=== PATIENT | male | born 1990 | race Caucasian/White ===

== ENCOUNTER 2016-09-04 09:05 | Emergency (ER) | payer OTHER ==
[~2016-09-04] VITALS: Ht 182.9 cm; Wt 78.7 kg
[~2016-09-04 09:05] MED LIST: DICL-201 PO; TRAM-10 PO
[2016-09-04 09:10] VITALS: TEMP 36.3; Ht 182.9 cm; Wt 78.7 kg
[2016-09-04] MEDS ORDERED: MoRPHine SULFATE 10 MG/ML CARP/VIAL IV STA (09:51)
[2016-09-04] MEDS ORDERED: ONDANSETRON INJ 2 MG/ML 2 ML VIAL IV STA (09:51)
[2016-09-04] MEDS ORDERED: SODIUM CHLORIDE 0.9% 1000ML 1,000 ML IV STA (09:51)
[2016-09-04 09:53] LABS: URINE APPEARANCE CLOUDY (CLEAR); URINE BILIRUBIN NEG (NEG); URINE COLOR YELLOW; URINE EPITHELIAL CELL AUTO 0-5 /lpf (0-5); URINE NITRITE NEG (NEG); URINE SPECIFIC GRAVITY 1.022 (1.000-1.030); UROBILINOGEN POS (NEG); ZZUR CULT IF INDIC CLEAN CATCH NO
[2016-09-04 09:59] LABS: MANUAL MICROSCOPIC REQUIRED? NO; REVIEW REQ? NO
[2016-09-04] MEDS ORDERED: OPTIRAY 320 IV PRN (10:00)
--- NOTE | 2016-09-04 10:11 | DIAGNOSTIC IMAGING REPORT ---
CHEST ONE VIEW PORTABLE CLINICAL HISTORY: fall trauma COMPARISON STUDY: 07/21/2016 FINDINGS: The bones soft tissues and hemidiaphragms are normal. The cardiomediastinal silhouette is normal. The lungs are clear. The pulmonary vasculature is normal. IMPRESSION: Negative chest. Electronically signed by: Alessandro Parsons M.D. 09/04/2016 10:09 AM
[2016-09-04 10:22] LABS: BASO % 0.3 %; BASO ABS # 0.02 K/uL (0-0.2); COMPLETE YES; EOS % 3.6 %; HEMATOCRIT 47.5 % (42-52); IG% 0.3 %; LYMPH % 24.8 %; MEAN CELL VOLUME 88.6 fL (80-100); MEAN CORPUSCULAR HEMOGLOBIN 31.7 pg (25-34); MEAN CORPUSCULAR HGB CONC 35.8 g/dl (32-36); MEAN PLATELET VOLUME 10.3 fL (7.4-10.4); MONO % 9.6 %; NEUT % 61.4 %; PLATELET COUNT 150 K/uL (130-400); RED BLOOD COUNT 5.36 M/uL (4.7-6.1); WHITE BLOOD COUNT 6.04 K/uL (4.8-10.8)
[2016-09-04 10:42] LABS: BUN/CREATININE RATIO 15.8 (10-20); CALCIUM 8.7 mg/dl (8.5-10.1); CREATININE 0.98 mg/dl (0.60-1.40); POTASSIUM 4.1 mmol/L (3.5-5.1)
--- NOTE | 2016-09-04 11:37 | DIAGNOSTIC IMAGING REPORT ---
ABDOMEN AND PELVIS CT WITH IV CONTRAST CT DOSE: 293.86 mGy.cm HISTORY: fall right flank pain urinating blood TECHNIQUE: Multiaxial CT images of the abdomen and pelvis were performed following the use of intravenous contrast. COMPARISON STUDY: None. FINDINGS: The lung bases are clear. The liver, spleen, gallbladder, pancreas, kidneys, and adrenal glands are within normal limits. No bowel wall thickening or obstruction. The pelvic organs are unremarkable. No suspicious lytic or blastic osseous lesions. The spleen remains top normal in size measuring 12.5 cm in length. No fractures within the visualized osseous structures. IMPRESSION: No acute abnormality within the abdomen or pelvis. Specifically, the kidneys appear unremarkable. Electronically signed by: Edgardo Patel M.D. 09/04/2016 11:35 AM
[2016-09-04 12:06] VITALS: BP 108/79; PULSE 66; O2SAT 99
--- NOTE | 2016-09-04 17:08 | EMERGENCY ROOM VISIT NOTE ---
History Report prepared by John: Charlotte Montero Under the Supervision of: Dr. Aneesh Reyna D.O. First contact with patient: 09:21 Chief Complaint: URINARY SYMPTOMS Stated Complaint: LOWER BACK PAIN, BLOOD IN URINE Nursing Triage Summary: Pt states he fell last night striking his right back, today awoke with hematuria History of Present Illness The patient is a 26 year old male who presents to the Emergency Room with complaints of passing one movement of hematuria this morning after suffering a fall last evening. Currently, he is experiencing discomfort to his mid-right back, wrapping around his right side, and he rates his discomfort as a 3/10, which increases with movement. Last evening, patient states that he was walking outside when he slipped and fell backwards, falling under his porch, hitting his right back on his arts therapist. The patient did not lose consciousness or suffer injuries to his head, neck, chest, abdomen, pelvis or extremities during the accident. After falling, the patient was able to get up without significant pain and he went to sleep normally. However, upon waking up this morning the pain to his mid-right back had become worse. He then went to the bathroom but noticed what appeared to be blood in his urine, so he came to the ED for further evaluation. Pt denies headache, change in vision, fevers, chest pain, shortness of breath, nausea, vomiting, diarrhea, pain with urination, and melena. He denies the use of blood thinning medication. Source of History: patient Onset: this morning Position: other (urine) Symptom Intensity: 3/10 Quality: other (hematuria) Timing: other (1 movement) Modifying Factors (Worsening): movement Associated Symptoms: + back pain (right flank), No SOB, No abdominal pain, No chest pain, No diarrhea, No fevers, No melena, No nausea, No vomiting Review of Systems See HPI for pertinent positives & negatives. A total of 10 systems reviewed and were otherwise negative. Past Medical & Surgical Medical Problems: (1) ALCOHOL ABUSE-UNSPEC (2) FAM HX-DIABETES MELLITUS (3) FAM HX-OTH KIDNEY DISEASES (4) FAMILY HISTORY OF OTHER CARDIOVASCULAR DISEASES (5) FAMILY HX-CONDITION NEC (6) Migraine (7) OPIOID ABUSE-UNSPEC (8) Status post ORIF of fracture of ankle (9) TOBACCO USE DISORDER Family History Heart disease Kidney disease Kidney stones Social History Smoking Status: Never Smoker Alcohol Use: none Marital Status: in relationship Housing Status: lives with family, other Occupation Status: employed Current/Historical Medications No Active Prescriptions or Reported Meds Allergies Coded Allergies: Amoxicillin (Verified Allergy, Unknown, ., 09/04/16) Cephalosporins (Verified Allergy, Unknown, UNKNOWN, 09/04/16) Penicillins (Unverified Allergy, Unknown, 09/04/16) Physical Exam Vital Signs Date Time Temp Pulse Resp B/P Pulse Ox O2 Delivery O2 Flow Rate FiO2 09/04/16 12:06 66 14 108/79 99 09/04/16 10:55 62 15 118/73 98 Room Air 09/04/16 09:10 36.3 72 16 107/80 98 Room Air Physical Exam GENERAL: Alert, well appearing, well nourished, no distress, non-toxic HEAD: normal cephalic, atraumatic EYE EXAM: normal conjunctiva, PERRL and EOM's grossly intact OROPHARYNX: no exudate, no erythema, lips, buccal mucosa, and tongue normal and mucous membranes are moist EARS: TMs clear b/l NECK: supple, no nuchal rigidity, no adenopathy, non-tender CHEST: stable to compression anteriorly and posteriorly LUNGS: clear to auscultation. Normal chest wall mechanics HEART: no murmurs, S1 normal and S2 normal ABDOMEN: abdomen soft, non-tender, normo-active bowel sounds, no masses, no rebound or guarding. PELVIS: stable to compression anteriorly and posteriorly BACK: Back is symmetrical on inspection and there is no deformity, acute reproducible tenderness in the right flank without bruising. No midline tenderness. UPPER EXTREMITIES: full active and passive range of motion of all joints without tenderness to palpation LOWER EXTREMITIES: full active and passive range of motion of all joints without tenderness to palpation NEURO EXAM: Normal sensorium, cranial nerves II-XII grossly intact, normal speech, no gross weakness of arms, no gross weakness of legs. GCS: 15. Medical Decision & Procedures ER Provider Diagnostic Interpretation: CT:Per my review, radiologist interpretation. Xray results per the radiologist and my interpretation. Other results have been interpreted by the radiologist and reviewed by me. CHEST ONE VIEW PORTABLE CLINICAL HISTORY: fall trauma COMPARISON STUDY: 07/21/2016 FINDINGS: The bones soft tissues and hemidiaphragms are normal. The cardiomediastinal silhouette is normal. The lungs are clear. The pulmonary vasculature is normal. IMPRESSION: Negative chest. Electronically signed by: Alessandro Parsons M.D. 09/04/2016 10:09 AM ABDOMEN AND PELVIS CT WITH IV CONTRAST CT DOSE: 293.86 mGy.cm HISTORY: fall right flank pain urinating blood TECHNIQUE: Multiaxial CT images of the abdomen and pelvis were performed following the use of intravenous contrast. COMPARISON STUDY: None. FINDINGS: The lung bases are clear. The liver, spleen, gallbladder, pancreas, kidneys, and adrenal glands are within normal limits. No bowel wall thickening or obstruction. The pelvic organs are unremarkable. No suspicious lytic or blastic osseous lesions. The spleen remains top normal in size measuring 12.5 cm in length. No fractures within the visualized osseous structures. IMPRESSION: No acute abnormality within the abdomen or pelvis. Specifically, the kidneys appear unremarkable. Electronically signed by: Edgardo Patel M.D. 09/04/2016 11:35 AM Laboratory Results 09/04/16 10:10 Red Blood Count 5.36, Mean Corpuscular Volume 88.6, Mean Corpuscular Hemoglobin 31.7, Mean Corpuscular Hemoglobin Concent 35.8, Mean Platelet Volume 10.3, Neutrophils (%) (Auto) 61.4, Lymphocytes (%) (Auto) 24.8, Monocytes (%) (Auto) 9.6, Eosinophils (%) (Auto) 3.6, Basophils (%) (Auto) 0.3, Neutrophils # (Auto) 3.70, Lymphocytes # (Auto) 1.50, Monocytes # (Auto) 0.58, Eosinophils # (Auto) 0.22, Basophils # (Auto) 0.02 09/04/16 10:10 Test 09/04/16 09:20 09/04/16 10:10 Urine Color YELLOW Urine Appearance CLOUDY (CLEAR) Urine pH 8.0 (4.5-7.5) Urine Specific [place] 1.022 (1.000-1.030) Urine Protein NEG (NEG) Urine Glucose (UA) NEG (NEG) Urine Ketones NEG (NEG) Urine Occult Blood 3+ (NEG) Urine Nitrite NEG (NEG) Urine Bilirubin NEG (NEG) Urine Urobilinogen POS (NEG) Urine Leukocyte Esterase NEG (NEG) Urine WBC (Auto) 0 /hpf (0-5) Urine RBC (Auto) >30 /hpf (0-4) Urine Hyaline Casts (Auto) 0 /lpf (0-5) Urine Epithelial Cells (Auto) 0-5 /lpf (0-5) Urine Bacteria (Auto) NEG (NEG) White Blood Count 6.04 K/uL (4.8-10.8) Red Blood Count 5.36 M/uL (4.7-6.1) Hemoglobin 17.0 g/dL (14.0-18.0) Hematocrit 47.5 % (42-52) Mean Corpuscular Volume 88.6 fL (80-100) Mean Corpuscular Hemoglobin 31.7 pg (25-34) Mean Corpuscular Hemoglobin Concent 35.8 g/dl (32-36) Platelet Count 150 K/uL (130-400) Mean Platelet Volume 10.3 fL (7.4-10.4) Neutrophils (%) (Auto) 61.4 % Lymphocytes (%) (Auto) 24.8 % Monocytes (%) (Auto) 9.6 % Eosinophils (%) (Auto) 3.6 % Basophils (%) (Auto) 0.3 % Neutrophils # (Auto) 3.70 K/uL (1.4-6.5) Lymphocytes # (Auto) 1.50 K/uL (1.2-3.4) Monocytes # (Auto) 0.58 K/uL (0.11-0.59) Eosinophils # (Auto) 0.22 K/uL (0-0.5) Basophils # (Auto) 0.02 K/uL (0-0.2) RDW Standard Deviation 41.0 fL (36.4-46.3) RDW Coefficient of Variation 12.7 % (11.5-14.5) Immature Granulocyte % (Auto) 0.3 % Immature Granulocyte # (Auto) 0.02 K/uL (0.00-0.02) Anion Gap 10.0 mmol/L (3-11) Est Creatinine Clear Calc Drug Dose 124.3 ml/min Estimated GFR () 122.0 Estimated GFR (Non- 105.2 BUN/Creatinine Ratio 15.8 (10-20) Calcium Level 8.7 mg/dl (8.5-10.1) Total Bilirubin 0.9 mg/dl (0.2-1) Direct Bilirubin 0.2 mg/dl (0-0.2) Aspartate Amino Transf (AST/SGOT) 171 U/L (15-37) Alanine Aminotransferase (ALT/SGPT) 339 U/L (12-78) Alkaline Phosphatase 78 U/L (45-117) Total Protein 7.2 gm/dl (6.4-8.2) Albumin 3.6 gm/dl (3.4-5.0) Lipase 86 U/L (73-393) Laboratory results per my review. Medications Administered Medications (Trade) Dose Ordered Sig/Boyd Route Start Time Stop Time Status Last Admin Dose Admin Sodium Chloride (Nss 1000ml) 1,000 ml @ 999 mls/hr Q1H1M STAT IV 09/04/16 09:51 09/04/16 10:51 DC 09/04/16 10:19 999 MLS/HR Morphine Sulfate (MoRPHine SULFATE INJ) 6 mg NOW STAT IV 09/04/16 09:51 09/04/16 09:53 DC 09/04/16 10:18 6 MG Ondansetron HCl (Zofran Inj) 4 mg NOW STAT IV 09/04/16 09:51 09/04/16 09:53 DC 09/04/16 10:19 4 MG ED Course ED COURSE: Vital signs were reviewed and showed normalcy. The patients medical record was reviewed The above diagnostic studies were performed and reviewed. ED treatments and interventions as stated above. 0944: The patient was evaluated in room A10. A complete history and physical examination was performed. 0951: Zofran 4 mg IV, Morphine Sulfate 6 mg IV and NSS bolus IV were ordered. 1112: Upon reevaluation, the patient was doing well. I discussed the results of his radiology reports with him. His lab studies are pending. 1130: I have reviewed the results of the patient's lab studies. He has had persistent transaminitis since January of last year. 1147: Patient was reevaluated at this time and was resting comfortably. I updated him on the results of his workup. Discharge instructions were also discussed at this time. He verbalized his understanding and agreement with the treatment plan, and he is now ready for disposition. Based on the patients age, coexisting illnesses, exam and lab findings the decision to treat as an outpatient was made. The patient remained stable while under my care. The patient appeared well at the time of discharge. Medical Decision Differential diagnoses include major intracranial, cervical, spinal, thoracic, abdominal, pelvic and neurologic injury. Fracture, contusion, sprain, strain, laceration, abrasions included as well. Patient is a 26-year-old male who presents the ER following a fall yesterday with right flank pain. Notes that this morning he had blood in his urine that this is cleared up. He still having pain in his right flank a presents to the ER. He takes no blood thinners. Labs showed no significant leukocytosis or anemia. BMP was unremarkable. LFTs show an AST of 171 and ALTs 339. Upon review of his chart this is consistent with his previous LFTs the past 9 months. Remainder labs were unremarkable. UA did have +[address] of the abdomen and pelvis shows no trauma to liver or kidney. With his RBCs I did stress the importance of following up with his PCP in the next 24 hours. I also stressed the importance of following up with his LFTs as these have been persistently elevated for the past 6-9 months. I I did not feel that these are secondary to the trauma especially since they are lower than where they have been. Discussed with Pt concerning signs and symptoms to watch out for. Pt was instructed to follow up with their PCP and discussed with the patient their option to return to the ED at anytime for persistent or worsening symptoms. The appropriate anticipatory guidance and out-patient management, including indications for return to the emergency department, were explained at length to the patient and understood. Impression Primary Impression: Hematuria Additional Impressions: Flank pain, Transaminitis Scribe Attestation The scribe's documentation has been prepared under my direction and personally reviewed by me in its entirety. I confirm that the note above accurately reflects all work, treatment, procedures, and medical decision making performed by me. Departure Information Dispostion Home / Self-Care Prescriptions No Active Prescriptions or Reported Meds Referrals James Rhoades M.D. (PCP) Forms HOME CARE DOCUMENTATION FORM, IMPORTANT VISIT INFORMATION Patient Instructions A Signature Page, My [facility] Additional Instructions Please follow up with your primary care doctor with in the next 24 hours. Any worsening of your symptoms, please return to the ED immediately. This includes urinating bright red blood, passing out feeling dizzy or lightheaded, worsening pain, or any other concerning signs or symptoms from your standpoint. Please take Tylenol as needed for pain. Please follow up with your primary care doctor has instructed above for hematuria and chronic elevation in her LFTs which has been present since mid last January.
== END 2016-09-04 12:08 | disposition home or self-care (01) ==
LOC: C.EDB 09:08 → C.EDA 12:08
DX: R31.9 Hematuria, unspecified (principal); R10.30 Lower abdominal pain, unspecified; R78.89 Finding of other specified substances, not normally found in blood; F17.200 Nicotine dependence, unspecified, uncomplicated; Z87.81 Personal history of (healed) traumatic fracture; Z88.0 Allergy status to penicillin; Z88.1 Allergy status to other antibiotic agents; Z88.8 Allergy status to other drugs, medicaments and biological substances; Z82.49 Family history of ischemic heart disease and other diseases of the circulatory system; Z84.1 Family history of disorders of kidney and ureter; Z83.3 Family history of diabetes mellitus